=== PATIENT | female | born 1990 | race Caucasian/White ===

== ENCOUNTER 2020-02-16 01:05 | Inpatient (IN) | payer BC ==
[~2020-02-16 01:05] MED LIST: Bupivacaine 0.25% 10 ML SDV ONE
[2020-02-16] MEDS ORDERED: Sodium Chloride 0.9% 10 ML Syringe FLUSH PRN (01:37)
[2020-02-16] MEDS ORDERED: Nalbuphine 10 MG/ML Syringe IVPUSH PRN (01:37)
[2020-02-16] MEDS ORDERED: Ondansetron 4 MG/2 ML SDV IVPUSH PRN (01:37)
[2020-02-16] MEDS ORDERED: Oxytocin/Lactated Ringers 10 UNIT/1,000 ML BAG IV SCH (01:45)
[2020-02-16] MEDS: Lactated Ringers 1,000 ML IV SCH ×4 (01:57→06:26)
[2020-02-16] MEDS ORDERED: Bupivacaine/fentaNYL/NS 100 ML Bag EPIDUR PRN (03:02)
[2020-02-16] MEDS ORDERED: fentaNYL 100 MCG/2 ML SDV EPIDUR PRN (03:02)
[2020-02-16] MEDS ORDERED: diphenhydrAMINE 50 MG/ML SDV IVPUSH PRN (03:02)
[2020-02-16] MEDS ORDERED: ePHEDrine 50 MG/ML SDV IVPUSH PRN (03:02)
--- NOTE | 2020-02-16 03:58 | PCM.PREANE ---
Preanesthetic Assessment - Procedure Proposed Procedure: Labor Epidural - Anesthesia/Transfusion/Family Hx Anesthesia History: Prior Anesthesia Without Reaction Family History of Anesthesia Reaction: No Transfusion History: No Prior Transfusion(s) - Review of Systems General: No Symptoms Pulmonary: No Symptoms Cardiovascular: No Symptoms Gastrointestinal: Abdominal Pain Neurological: No Symptoms Other: Reports: None - Physical Assessment Vital Signs: Last Vital Signs Temp 36.9 C 02/16/20 01:37 Pulse 77 02/16/20 01:37 Resp 15 02/16/20 01:37 BP 112/73 02/16/20 01:37 Pulse Ox Height: 1.68 m Weight: 93.894 kg ASA Class: 2 Mental Status: Alert & Oriented x3 Airway Class: Mallampati = 2 Dentition: Reports: Normal Dentition Thyro-Mental Finger Breadths: 3 Mouth Opening Finger Breadths: 3 ROM/Head Extension: Full Lungs: Clear to Auscultation, Normal Respiratory Effort Cardiovascular: Regular Rate, Regular Rhythm - Lab Values: Laboratory Last Values WBC 10.64 K/mm3 (3.98-10.04) H 02/16/20 01:50 RBC 4.11 M/mm3 (3.98-5.22) 02/16/20 01:50 Hgb 11.4 gm/dl (11.2-15.7) D 02/16/20 01:50 Hct 34.6 % (34.1-44.9) 02/16/20 01:50 MCV 84.2 fl (79.4-94.8) 02/16/20 01:50 MCH 27.7 pg (25.6-32.2) 02/16/20 01:50 MCHC 32.9 g/dl (32.2-35.5) 02/16/20 01:50 RDW Std Deviation 40.3 fL (36.4-46.3) 02/16/20 01:50 Plt Count 151 K/mm3 (182-369) L 02/16/20 01:50 MPV 12.9 fl (9.4-12.3) H 02/16/20 01:50 Neut % (Auto) 72.1 % (34.0-71.1) H 02/16/20 01:50 Lymph % (Auto) 18.6 % (19.3-51.7) L 02/16/20 01:50 [place] % (Auto) 6.8 % (4.7-12.5) 02/16/20 01:50 Eos % (Auto) 0.8 (0.7-5.8) 02/16/20 01:50 Baso % (Auto) 0.3 % (0.1-1.2) 02/16/20 01:50 Neut # (Auto) 7.67 K/mm3 (1.56-6.13) H 02/16/20 01:50 Lymph # (Auto) 1.98 K/mm3 (1.18-3.74) 02/16/20 01:50 [place] # (Auto) 0.72 K/mm3 (0.24-0.36) H 02/16/20 01:50 Eos # (Auto) 0.09 K/mm3 (0.04-0.36) 02/16/20 01:50 Baso # (Auto) 0.03 K/mm3 (0.01-0.08) 02/16/20 01:50 Manual Slide Review Abnormal smear 02/16/20 01:50 Blood Type O POSITIVE 02/16/20 01:50 Gel Antibody Screen Negative 02/16/20 01:50 - Allergies Allergies/Adverse Reactions: Allergies Allergy/AdvReac Type Severity Reaction Status Date / Time No Known Allergies Allergy Verified 02/16/20 03:09 - Acknowledgements Anesthesia Type Planned: Epidural Pt an Appropriate Candidate for the Planned Anesthesia: Yes Alternatives and Risks of Anesthesia Discussed w Pt/Guardian: Yes Pt/Guardian Understands and Agrees with Anesthesia Plan: Yes 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: , 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 Psychiatric History: Reports: Other (See Below) Other Psychiatric History: PPD with previous , denies any need for medication - Past Surgical History HEENT Surgical History: Reports: Adenoidectomy, Tonsillectomy Other HEENT Surgeries/Procedures: age 13 GI Surgical History: Reports: Appendectomy Other GI Surgeries/Procedures: 1998 - SUBSTANCE USE Smoking Status *Q: Never Smoker Second Hand Smoke Exposure: No Recreational Drug Use History: No - HOME MEDS Home Medications: Home Meds Docosahexaenoic Acid [DHA] 1 cap PO DAILY 02/16/20 [History] L.acidoph,Paracasei, B.lactis [Probiotic] 1 cap PO DAILY 02/16/20 [History] Mv-Mn/Iron/Folic Acid/Herb 190 [Vitamin D3 Complete Caplet] 1 tab PO DAILY 02/15 [History] Vit/FA/Fe Fumarate/Se [ MTR] 1 tab PO DAILY 02/16/20 [History] - CURRENT (IN HOUSE) MEDS Current Meds: Current Medications Diphenhydramine HCl (Benadryl) 25 mg IVPUSH Q6H PRN PRN Reason: pruritis Ephedrine Sulfate (Ephedrine Sulfate) 5 mg IVPUSH ASDIRECTED PRN PRN Reason: Hypotension Fentanyl (Sublimaze) 100 mcg EPIDUR Q3H PRN PRN Reason: Pain Last Admin: 02/16/20 03:17 Dose: 100 mcg Fentanyl/Bupivacaine HCl (Fentanyl/Bupivacaine/Ns 2 Mcg-0.125% 100 Ml) 100 ml EPIDUR ASDIRECTED PRN PRN Reason: Pain Last Admin: 02/16/20 03:17 Dose: 100 ml Lactated Ringer's (Ringers, Lactated) 1,000 mls @ 100 mls/hr IV ASDIRECTED BECCA Last Admin: 02/16/20 03:19 Dose: 100 mls/hr Oxytocin/Lactated Ringer's (Pitocin In Lr 10 Units/1,000 Ml) 10 unit in 1,000 mls @ 500 mls/hr IV .CONTINUOUS BECCA Nalbuphine HCl (Nubain) 10 mg IVPUSH Q2H PRN PRN Reason: Pain Ondansetron HCl (Zofran) 4 mg IVPUSH Q4H PRN PRN Reason: Nausea/Vomiting Sodium Chloride (Saline Flush) 10 ml FLUSH ASDIRECTED PRN PRN Reason: Keep Vein Open
--- NOTE | 2020-02-16 06:39 | PCM.LDHP ---
L&D History of Present Illness - General Date of Service: 02/16/20 Admit Problem/Dx: Patient Status Order with Admit Dx/Problem 02/16/20 01:37 Patient Status [ADT] Routine Admission Diagnosis/Problem Admission Diagnosis/Problem Source of Information: Patient History Limitations: Reports: No Limitations - History of Present Illness Introduction:: Patient is a 29 y/o at 39 6/7 wks who presented early this AM in labor. 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: , Therapeutic : 5 Para: 2 LMP (Approximate): Psychiatric History: Reports: Depression - Past Surgical History HEENT Surgical History: Reports: Adenoidectomy, Tonsillectomy Other HEENT Surgeries/Procedures: age 13 GI Surgical History: Reports: Appendectomy Other GI Surgeries/Procedures: 1998 Social & Family History - Family History Family Medical History: Noncontributory - Tobacco Use Smoking Status *Q: Never Smoker Second Hand Smoke Exposure: No - Caffeine Use Caffeine Use: Reports: None - Alcohol Use Alcohol Use History: No - Recreational Drug Use Recreational Drug Use: No H&P Review of Systems - Review of Systems: Review Of Systems: See Below General: Reports: No Symptoms Pulmonary: Reports: No Symptoms Cardiovascular: Reports: No Symptoms Gastrointestinal: Reports: No Symptoms Genitourinary: Reports: No Symptoms Musculoskeletal: Reports: No Symptoms Psychiatric: Reports: No Symptoms Neurological: Reports: No Symptoms L&D Exam - Exam Exam: See Below - Vital Signs Vital Signs: Last Vital Signs Temp 36.9 C 02/16/20 01:37 Pulse 77 02/16/20 01:37 Resp 15 02/16/20 01:37 BP 112/73 06/03/20 01:37 Pulse Ox Weight: 93.894 kg - OB Specific Contraction Intensity: Moderate to Strong Movement: Active Heart Tones: Present Heart Tones per Min: 110 Heart Rate (FHR) Variability: Moderate (6-25 bmp) Presentation: Vertex - Bright Score Bright Score Cervix Position: Anterior Bright Score Consistency: Soft Bright Score Effacement: >80% Bright Score Dilation: > 5 cm Bright Score Infant's Station: -1 ,0 Bright Score Total: 12 - Exam General: Alert, Oriented, Cooperative Lungs: Clear to Auscultation, Normal Respiratory Effort Cardiovascular: Regular Rate, Regular Rhythm GI/Abdominal Exam: Soft, Non-Tender Genitourinary: Normal external exam Extremities: Normal Inspection Skin: Warm, Dry, Intact - Patient Data Lab Results Last 24 hrs: Laboratory Results - last 24 hr 02/16/20 02/16/20 Range/Units 01:50 01:50 WBC 10.64 H (3.98-10.04) K/mm3 RBC 4.11 (3.98-5.22) M/mm3 Hgb 11.4 D (11.2-15.7) gm/dl Hct 34.6 (34.1-44.9) % MCV 84.2 (79.4-94.8) fl MCH 27.7 (25.6-32.2) pg MCHC 32.9 (32.2-35.5) g/dl RDW Std Deviation 40.3 (36.4-46.3) fL Plt Count 151 L (182-369) K/mm3 MPV 12.9 H (9.4-12.3) fl Neut % (Auto) 72.1 H (34.0-71.1) % Lymph % (Auto) 18.6 L (19.3-51.7) % [place] % (Auto) 6.8 (4.7-12.5) % Eos % (Auto) 0.8 (0.7-5.8) Baso % (Auto) 0.3 (0.1-1.2) % Neut # (Auto) 7.67 H (1.56-6.13) K/mm3 Lymph # (Auto) 1.98 (1.18-3.74) K/mm3 [place] # (Auto) 0.72 H (0.24-0.36) K/mm3 Eos # (Auto) 0.09 (0.04-0.36) K/mm3 Baso # (Auto) 0.03 (0.01-0.08) K/mm3 Manual Slide Review Abnormal smear Blood Type O POSITIVE Gel Antibody Screen Negative Result Diagrams: 02/16/20 01:50 - Problem List (1) 39 weeks gestation of SNOMED Code(s): 33137807 ICD Code: Z3A.39 - 39 WEEKS GESTATION OF Status: Acute Current Visit: Yes Problem List Initiated/Reviewed/Updated: Yes Orders Last 24hrs: Active Orders 24 hr Category Date Time Status Patient Status [ADT] Routine ADT 02/16/20 01:37 Active Activity as Tolerated [RC] PFP Care 02/16/20 01:37 Active Communication Order [RC] ASDIRECTED Care 02/16/20 01:37 Active Heart Tones [RC] ASDIRECTED Care 02/16/20 01:38 Active Notify Provider [RC] ASDIRECTED Care 02/16/20 03:02 Active Notify Provider [RC] PFP Care 02/16/20 01:37 Active Notify Provider [RC] PRN Care 02/16/20 01:37 Active Peripheral IV Care [RC] . DIRECTED Care 02/16/20 01:38 Active Vital Signs [RC] PER UNIT ROUTINE Care 02/16/20 01:37 Active Regular Diet [DIET] Diet 02/16/20 Breakfast Active PATIENT RETYPE [BBK] Routine Lab 02/16/20 02:44 Ordered RAPID PLASMA REAGIN,RPR [CHEM] Routine Lab 02/16/20 01:37 Ordered Bupivacaine/fentaNYL/NS [fentaNYL/Bupivacaine/NS 2 MCG- Med 02/16/20 03:02 Active 0.125% 100 ML] 100 ml EPIDUR ASDIRECTED PRN Lactated Ringers [Ringers, Lactated] 1,000 ml Med 02/16/20 01:45 Active IV ASDIRECTED Nalbuphine [Nubain] Med 02/16/20 01:37 Active 10 mg IVPUSH Q2H PRN Ondansetron [Zofran] Med 02/16/20 01:37 Active 4 mg IVPUSH Q4H PRN Oxytocin/Lactated Ringers [Pitocin in LR 10 Units/1,000 Med 02/16/20 01:45 Active ML] 10 unit in 1,000 ml IV .CONTINUOUS Sodium Chloride 0.9% [Saline Flush] Med 02/16/20 01:37 Active 10 ml FLUSH ASDIRECTED PRN diphenhydrAMINE [Benadryl] Med 02/16/20 03:02 Active 25 mg IVPUSH Q6H PRN ePHEDrine [ePHEDrine sulfate] Med 02/16/20 03:02 Active 5 mg IVPUSH ASDIRECTED PRN fentaNYL [Sublimaze] Med 02/16/20 03:02 Active 100 mcg EPIDUR Q3H PRN Electronic Heart Tones Ext w TOCO [WOMSER] Oth 02/16/20 01:37 Ordered Routine Electronic Heart Tones Internal [WOMSER] Per Unit Oth 02/16/20 01:37 Ordered Routine Peripheral IV Insertion Adult [OM.PC] Routine Oth 02/16/20 01:37 Ordered Resuscitation Status Routine Resus Stat 02/16/20 01:37 Ordered Medication Orders Diphenhydramine HCl (Benadryl) 25 mg IVPUSH Q6H PRN PRN Reason: pruritis Ephedrine Sulfate (Ephedrine Sulfate) 5 mg IVPUSH ASDIRECTED PRN PRN Reason: Hypotension Fentanyl (Sublimaze) 100 mcg EPIDUR Q3H PRN PRN Reason: Pain Last Admin: 02/16/20 03:17 Dose: 100 mcg Fentanyl/Bupivacaine HCl (Fentanyl/Bupivacaine/Ns 2 Mcg-0.125% 100 Ml) 100 ml EPIDUR ASDIRECTED PRN PRN Reason: Pain Last Admin: 02/16/20 03:17 Dose: 100 ml Lactated Ringer's (Ringers, Lactated) 1,000 mls @ 100 mls/hr IV ASDIRECTED BECCA Last Admin: 02/16/20 06:26 Dose: 100 mls/hr Infusion: 02/16/20 06:26 Dose: 100 mls/hr Admin: 02/16/20 03:19 Dose: 100 mls/hr Infusion: 02/16/20 03:19 Dose: 100 mls/hr Admin: 02/16/20 02:42 Dose: 100 mls/hr Infusion: 02/16/20 02:42 Dose: 100 mls/hr Admin: 02/16/20 01:57 Dose: 100 mls/hr Oxytocin/Lactated Ringer's (Pitocin In Lr 10 Units/1,000 Ml) 10 unit in 1,000 mls @ 500 mls/hr IV .CONTINUOUS BECCA Nalbuphine HCl (Nubain) 10 mg IVPUSH Q2H PRN PRN Reason: Pain Ondansetron HCl (Zofran) 4 mg IVPUSH Q4H PRN PRN Reason: Nausea/Vomiting Sodium Chloride (Saline Flush) 10 ml FLUSH ASDIRECTED PRN PRN Reason: Keep Vein Open Assessment/Plan Comment:: * Labs done * GBS negative * Epidural in place * Rubella non immune - MMR after delivery * Anticipate
--- NOTE | 2020-02-16 09:21 | PCM.DEL ---
L & D Note - General Info Date of Service: 02/16/20 - Delivery Note Labor: Spontaneous Delivery Outcome: Livebirth Delivery Method: Spontaneous Vaginal Delivery-Single Delivery Mode: Spontaneous Presentation: Left Occiput Anterior (COLIN) Nuchal Cord: None Anesthesia Type: Epidural Amniotic Fluid Description: Clear Episiotomy Type: None Laceration: 2nd Degree Suture type: Vicryl Suture size: 2-0 Placenta: Intact, Spontaneous Cord: 3 Vessels Resuscitation Needed: Yes [place]: Bulb Syringe, Stimulated, Warmed, [place] Used, Warmer Used Delivery Comments (Free Text/Narrative):: Patient found to be complete and began pushing. With maternal pushing effort head delivered from an COLIN presentation. No nuchal cord present. With gentle downward traction shoulders and body delivered. placed on maternal abdomen. Cord clamped and cut. Cord blood obtained. Placenta allowed time to separate and expelled intact. Inspection of the perineum showed a small 2nd degree laceration. This was repaired with a 2-0 vicryl in the typical fashion. - General Info Date of Service: 02/16/20 - Patient Data Vitals - Most Recent: Last Vital Signs Temp 36.9 C 02/16/20 01:37 Pulse 77 02/16/20 01:37 Resp 15 02/16/20 01:37 BP 112/73 02/16/20 01:37 Pulse Ox Weight - Most Recent: 93.894 kg I&O - Last 24 Hours: Intake & Output 02/15/20 02/16/20 02/16/20 22:59 06:59 14:59 Intake Total 5000 Balance 5000 - Problem List & Annotations (1) 39 weeks gestation of SNOMED Code(s): 62715560 Code(s): Z3A.39 - 39 WEEKS GESTATION OF Status: Acute Current Visit: Yes (2) Vaginal delivery SNOMED Code(s): 664129801 Code(s): O80 - ENCOUNTER FOR FULL-TERM UNCOMPLICATED DELIVERY Status: Acute Current Visit: Yes - Problem List Review Problem List Initiated/Reviewed/Updated: Yes - My Orders Last 24 Hours: My Active Orders 02/16/20 01:37 Patient Status [ADT] Routine Activity as Tolerated [RC] PFP Communication Order [RC] ASDIRECTED Notify Provider [RC] PFP Notify Provider [RC] PRN RAPID PLASMA REAGIN,RPR [CHEM] Routine Nalbuphine [Nubain] 10 mg IVPUSH Q2H PRN Ondansetron [Zofran] 4 mg IVPUSH Q4H PRN Sodium Chloride 0.9% [Saline Flush] 10 ml FLUSH ASDIRECTED PRN Electronic Heart Tones Ext w TOCO [WOMSER] Routine Electronic Heart Tones Internal [WOMSER] Per Unit Routine Peripheral IV Insertion Adult [OM.PC] Routine Resuscitation Status Routine 02/16/20 01:38 Heart Tones [RC] ASDIRECTED Peripheral IV Care [RC] Q2HR 02/16/20 01:45 Lactated Ringers [Ringers, Lactated] 1,000 ml IV ASDIRECTED Oxytocin/Lactated Ringers [Pitocin in LR 10 Units/1,000 ML] 10 unit in 1,000 ml IV .CONTINUOUS 02/16/20 02:44 PATIENT RETYPE [BBK] Routine 02/16/20 Breakfast Regular Diet [DIET] - Assessment Assessment:: PPD#0 - Plan Plan:: * Routine cares * Breast feeding * Discharge home in 1-2 days
[2020-02-16] MEDS ORDERED: Benzocaine/Menthol 20%-0.5% Spray 56 GM Canister TOP PRN (11:03)
[2020-02-16] MEDS ORDERED: Witch Hazel Medicated Pads 40/Jar TOP PRN (11:03)
[2020-02-16] MEDS: Ibuprofen 600 MG Tab PO PRN ×2 (11:16→19:05)
[2020-02-16] MEDS: Docusate Sodium 100 MG Cap PO PRN (11:16)
[2020-02-16] MEDS: Acetaminophen 325 MG Tab PO PRN (19:55)
[2020-02-16] MEDS ORDERED: Measles, Mumps & Rubella Vaccine 0.5 ML SDV SUBCUT ONE (21:17)
[2020-02-17] MEDS: Ibuprofen 600 MG Tab PO PRN ×2 (00:24→06:35)
[2020-02-17] MEDS: Acetaminophen 325 MG Tab PO PRN (00:26)
--- NOTE | 2020-02-17 06:57 | PCM.DCSUM1 ---
Discharge Summary - Discharge Data Discharge Date: 02/17/20 Discharge Disposition: Home, Self-Care 01 Condition: Good - Referral to Home Health Primary Care Physician: Brenda Varghese MD - Discharge Diagnosis/Problem(s) (1) 39 weeks gestation of SNOMED Code(s): 82554747 ICD Code: Z3A.39 - 39 WEEKS GESTATION OF Status: Acute - Patient Summary/Data Complications: None Consults: None Recommended Follow-up Testing/Procedures: Follow up in 3 weeks for check Hospital Course: 29 y/o at 39 6/7 wks who presented in labor. Made good change to complete dilation and underwent an uncomplicated . See delivery note. did well and was discharged home on PPD#1 - Patient Instructions Diet: Regular Diet as Tolerated Activity: As Tolerated Activity, Other: Pelvic rest for 6 weeks Driving: May Drive Today Showering/Bathing: May Shower Showering/Bathing, Other: May Bathe Notify Provider of: Fever, Increased Pain, Swelling and Redness, Drainage, Nausea and/or Vomiting - Discharge Plan *PRESCRIPTION DRUG MONITORING PROGRAM REVIEWED*: No *COPY OF PRESCRIPTION DRUG MONITORING REPORT IN PATIENT SATYA: No Home Medications: Home Meds Docusate Sodium [Colace] 100 mg PO BID PRN cap 02/16/20 [Rx] Ibuprofen [Motrin] 600 mg PO Q6H PRN tablet 02/16/20 [Rx] Vit/FA/Fe Fumarate/Se [ MTR] 1 tab PO DAILY 02/16/20 [History] Patient Handouts: Care of a Perineal Tear, Care After Vaginal Delivery Referrals: Brenda Varghese MD [Primary Care Provider] - (3 weeks for check) - Discharge Summary/Plan Comment DC Time >30 min.: No - Patient Data Vitals - Most Recent: Last Vital Signs Temp 36.6 C 02/17/20 03:39 Pulse 76 02/17/20 03:39 Resp 13 02/17/20 03:39 BP 116/66 02/17/20 03:39 Pulse Ox 100 02/17/20 03:39 Weight - Most Recent: 93.894 kg I&O - Last 24 hours: Intake & Output 02/16/20 02/16/20 02/17/20 14:59 22:59 06:59 Intake Total 1950 120 Output Total 200 Balance 1750 120 Med Orders - Current: Current Medications Acetaminophen (Tylenol) 650 mg PO Q4H PRN PRN Reason: mild pain or fever Last Admin: 02/17/20 00:26 Dose: 650 mg Benzocaine/Menthol (Dermoplast Pain Relief [place]) 0 gm TOP ASDIRECTED PRN PRN Reason: Perineal Comfort Measure Last Admin: 02/16/20 11:17 Dose: 1 can Docusate Sodium (Colace) 100 mg PO BID PRN PRN Reason: Constipation Last Admin: 02/16/20 11:16 Dose: 100 mg Ibuprofen (Motrin) 600 mg PO Q6H PRN PRN Reason: Mild pain or fever Last Admin: 02/17/20 06:35 Dose: 600 mg Witch Latasha (Tucks) 1 pad TOP ASDIRECTED PRN PRN Reason: Perineal Comfort Measure Last Admin: 02/16/20 11:17 Dose: 1 container Discontinued Medications Bupivacaine HCl (Sensorcaine-Mpf 0.25%) 10 ml .ROUTE .[facility]-MED ONE Stop: 02/16/20 00:01 Diphenhydramine HCl (Benadryl) 25 mg IVPUSH Q6H PRN PRN Reason: pruritis Ephedrine Sulfate (Ephedrine Sulfate) 5 mg IVPUSH ASDIRECTED PRN PRN Reason: Hypotension Fentanyl (Sublimaze) 100 mcg EPIDUR Q3H PRN PRN Reason: Pain Last Admin: 02/16/20 03:17 Dose: 100 mcg Fentanyl/Bupivacaine HCl (Fentanyl/Bupivacaine/Ns 2 Mcg-0.125% 100 Ml) 100 ml EPIDUR ASDIRECTED PRN PRN Reason: Pain Last Admin: 02/16/20 03:17 Dose: 100 ml Lactated Ringer's (Ringers, Lactated) 1,000 mls @ 100 mls/hr IV ASDIRECTED BECCA Last Admin: 02/16/20 06:26 Dose: 100 mls/hr Oxytocin/Lactated Ringer's (Pitocin In Lr 10 Units/1,000 Ml) 10 unit in 1,000 mls @ 500 mls/hr IV .CONTINUOUS BECCA Last Admin: 02/16/20 09:05 Dose: 500 mls/hr Measles/Mumps/Rubella Vaccine Live (M-M-R Ii Vaccine) 0.5 ml SUBCUT .ONCE ONE Stop: 02/16/20 21:18 Last Admin: 02/17/20 00:28 Dose: 0.5 ml Nalbuphine HCl (Nubain) 10 mg IVPUSH Q2H PRN PRN Reason: Pain Ondansetron HCl (Zofran) 4 mg IVPUSH Q4H PRN PRN Reason: Nausea/Vomiting Sodium Chloride (Saline Flush) 10 ml FLUSH ASDIRECTED PRN PRN Reason: Keep Vein Open
--- NOTE | 2020-02-17 06:57 | PCM.PNPP ---
- General Info Date of Service: 02/17/20 Functional Status: Reports: Pain Controlled, Tolerating Diet, Ambulating, Urinating - Review of Systems General: Reports: No Symptoms Pulmonary: Reports: No Symptoms Cardiovascular: Reports: No Symptoms Gastrointestinal: Reports: Abdominal Pain (significant cramping) Genitourinary: Reports: No Symptoms Musculoskeletal: Reports: No Symptoms Neurological: Reports: No Symptoms - Patient Data Vital Signs - Most Recent: Last Vital Signs Temp 36.6 C 02/17/20 03:39 Pulse 76 02/17/20 03:39 Resp 13 02/17/20 03:39 BP 116/66 02/17/20 03:39 Pulse Ox 100 02/17/20 03:39 Weight - Most Recent: 93.894 kg I&O - Last 24 Hours: Intake & Output 02/16/20 02/16/20 02/17/20 14:59 22:59 06:59 Intake Total 1950 120 Output Total 200 Balance 1750 120 Med Orders - Current: Current Medications Acetaminophen (Tylenol) 650 mg PO Q4H PRN PRN Reason: mild pain or fever Last Admin: 02/17/20 00:26 Dose: 650 mg Benzocaine/Menthol (Dermoplast Pain Relief [place]) 0 gm TOP ASDIRECTED PRN PRN Reason: Perineal Comfort Measure Last Admin: 02/16/20 11:17 Dose: 1 can Docusate Sodium (Colace) 100 mg PO BID PRN PRN Reason: Constipation Last Admin: 02/16/20 11:16 Dose: 100 mg Ibuprofen (Motrin) 600 mg PO Q6H PRN PRN Reason: Mild pain or fever Last Admin: 02/17/20 06:35 Dose: 600 mg Witch Jayda (Tucks) 1 pad TOP ASDIRECTED PRN PRN Reason: Perineal Comfort Measure Last Admin: 02/16/20 11:17 Dose: 1 container Discontinued Medications Bupivacaine HCl (Sensorcaine-Mpf 0.25%) 10 ml .ROUTE .[facility]-MED ONE Stop: 02/16/20 00:01 Diphenhydramine HCl (Benadryl) 25 mg IVPUSH Q6H PRN PRN Reason: pruritis Ephedrine Sulfate (Ephedrine Sulfate) 5 mg IVPUSH ASDIRECTED PRN PRN Reason: Hypotension Fentanyl (Sublimaze) 100 mcg EPIDUR Q3H PRN PRN Reason: Pain Last Admin: 02/16/20 03:17 Dose: 100 mcg Fentanyl/Bupivacaine HCl (Fentanyl/Bupivacaine/Ns 2 Mcg-0.125% 100 Ml) 100 ml EPIDUR ASDIRECTED PRN PRN Reason: Pain Last Admin: 02/16/20 03:17 Dose: 100 ml Lactated Ringer's (Ringers, Lactated) 1,000 mls @ 100 mls/hr IV ASDIRECTED BECCA Last Admin: 02/16/20 06:26 Dose: 100 mls/hr Oxytocin/Lactated Ringer's (Pitocin In Lr 10 Units/1,000 Ml) 10 unit in 1,000 mls @ 500 mls/hr IV .CONTINUOUS BECCA Last Admin: 02/16/20 09:05 Dose: 500 mls/hr Measles/Mumps/Rubella Vaccine Live (M-M-R Ii Vaccine) 0.5 ml SUBCUT .ONCE ONE Stop: 02/16/20 21:18 Last Admin: 02/17/20 00:28 Dose: 0.5 ml Nalbuphine HCl (Nubain) 10 mg IVPUSH Q2H PRN PRN Reason: Pain Ondansetron HCl (Zofran) 4 mg IVPUSH Q4H PRN PRN Reason: Nausea/Vomiting Sodium Chloride (Saline Flush) 10 ml FLUSH ASDIRECTED PRN PRN Reason: Keep Vein Open - Interaction Infant Disposition, : [place] in Room with Family Interaction: Holding Infant Infant Feeding: Breastfed Infant; Nursed Well Support Person: - Recovery Exam Fundal Tone: Firm Fundal Level: 1 Fingerbreadths Below Umbilicus Fundal Placement: Midline Lochia Amount: Small Lochia Color: Rubra/Red Perineum Description: Other (see below) Other Perinuem Description: 2nd degree repaired Episiotomy/Laceration: Approximated Bladder Status: Voiding Urinary Elimination: Voided - Exam General: Alert, Oriented, Cooperative GI/Abdominal Exam: Soft, Non-Tender Extremities: Normal Inspection - Problem List & Annotations (1) 39 weeks gestation of SNOMED Code(s): 26484550 Code(s): Z3A.39 - 39 WEEKS GESTATION OF Status: Acute (2) Vaginal delivery SNOMED Code(s): 417111569 Code(s): O80 - ENCOUNTER FOR FULL-TERM UNCOMPLICATED DELIVERY Status: Acute - Problem List Review Problem List Initiated/Reviewed/Updated: Yes - My Orders Last 24 Hours: My Active Orders 02/16/20 11:03 Activity as Tolerated [RC] PER UNIT ROUTINE Vital Signs [RC] 03,09,15,21 Acetaminophen [Tylenol] 650 mg PO Q4H PRN Benzocaine/Menthol [Dermoplast Pain Relief [place]] See Dose Instructions TOP ASDIRECTED PRN Docusate Sodium [Colace] 100 mg PO BID PRN Ibuprofen [Motrin] 600 mg PO Q6H PRN witch Jayda [Tucks] 1 pad TOP ASDIRECTED PRN Assess Lochia [WOMSER] Per Unit Routine Assess Uterine Involution [WOMSER] Per Unit Routine Breast Pump [WOMSER] Per Unit Routine Heat Therapy [OM.PC] PRN Ice Therapy [OM.PC] Per Unit Routine Perineal Care [OM.PC] Per Unit Routine Peripheral IV Discontinue [OM.PC] Routine Sitz Bath [OM.PC] Per Unit Routine 02/16/20 21:18 Vaccines to be Administered [RC] PER UNIT ROUTINE 02/16/20 Breakfast Regular Diet [DIET] 02/17/20 04:20 RAPID PLASMA REAGIN,RPR [CHEM] Routine 02/17/20 06:56 Ready for Discharge [RC] PER UNIT ROUTINE 02/17/20 11:03 Heat Therapy [OM.PC] PRN - Assessment Assessment:: PPD#1 - Plan Plan:: * Routine cares * One dose of percocet for pain management * Breast feeding * discharge home today
--- NOTE | 2020-02-17 07:58 | PCM48HPAN ---
Post Anesthesia Note - EVALUATION WITHIN 48HRS OF ANESTHETIC Vital Signs in Normal Range: Yes Patient Participated in Evaluation: Yes Respiratory Function Stable: Yes Airway Patent: Yes Cardiovascular Function Stable: Yes Hydration Status Stable: Yes Pain Control Satisfactory: Yes Nausea and Vomiting Control Satisfactory: Yes Mental Status Recovered: Yes Vital Signs: Last Vital Signs Temp 36.6 C 02/17/20 03:39 Pulse 76 02/17/20 03:39 Resp 13 02/17/20 03:39 BP 116/66 02/17/20 03:39 Pulse Ox 100 02/17/20 03:39
[2020-02-17] MEDS ORDERED: Acetaminophen/oxyCODONE 325-5 MG Tab PO ONE (08:33)
[2020-02-17] MEDS: Docusate Sodium 100 MG Cap PO PRN (10:22)
== END 2020-02-17 12:22 | disposition home or self-care (01) | DRG 560 ==
LOC: JD.OB 01:05 → OBSVTOIN 09:04 → JD.OB 09:04
PROVIDERS: ADMIT Obstetrics & Gynecology; ATTEND Obstetrics & Gynecology
PROC: 10E0XZZ Delivery of Products of Conception, External Approach (ICD-10-PCS; principal; 2020-02-16)
PROC: 10907ZC Drainage of Amniotic Fluid, Therapeutic from Products of Conception, Via Natural or Artificial Opening (ICD-10-PCS; 2020-02-16)
PROC: 0KQM0ZZ Repair Perineum Muscle, Open Approach (ICD-10-PCS; 2020-02-16)
PROC: 3E0R3BZ Introduction of Anesthetic Agent into Spinal Canal, Percutaneous Approach (ICD-10-PCS; 2020-02-16)
PROC: 00HU33Z Insertion of Infusion Device into Spinal Canal, Percutaneous Approach (ICD-10-PCS; 2020-02-16)
PROC: 3E0234Z Introduction of Serum, Toxoid and Vaccine into Muscle, Percutaneous Approach (ICD-10-PCS; 2020-02-17)
DX: O70.1 Second degree perineal laceration during delivery (principal); Z37.0 Single live birth; Z3A.39 39 weeks gestation of pregnancy; Z23 Encounter for immunization
CPT/HCPCS: 36415; 51702; 59025; 59409; 85025; 86592; 86850; 86900; 86901; 90471; 90707; A9270-GY; J2590; J3010; J3490; J7120